=== PATIENT | female | born 2000 | race Caucasian/White ===

== ENCOUNTER 2025-02-10 13:14 | Emergency (ER) | payer OTHER, SELFPAY ==
[2025-02-10] VITALS (7 sets, daily range): BP systolic 102–128; BP diastolic 70–91; PULSE 87–117; RESP 15–24; TEMP 36.6–36.7; O2SAT 99–100
--- NOTE | ~2025-02-10 | CT_ITS ---
EXAMINATION: CT abdomen pelvis w con DATE: 02/10/2025 14:54 INDICATION: Abdominal pain TECHNIQUE: Computed tomography (CT) of the abdomen and pelvis was performed with 100 mL Omnipaque-350 intravenous contrast. Automated exposure control and iterative reconstruction technique were employe d. The dose-length product was 177.94 mGy-cm. COMPARISON: None FINDINGS: Lung bases are clear. Heart size is normal. No pericardial or pleural effusion. Liver, gallbladder, s pleen, pancreas, bilateral adrenal glands and kidneys are normal. Bladder, anteverted uterus and bila teral adnexa are unremarkable. Bowels including the appendix are normal. No free intraperitoneal gas or fluid. No pathologically enlarged abdominal or pelvic lymphadenopathy. Mild lumbar spondylosis. IMPRESSION: 1. No acute intra-abdominal/pelvic process. Reviewed, dictated and finalized at location A.
--- OUTSIDE RECORDS SUMMARY | 2025-02-10 13:18 | XMS_ITS | Clinical Summary ---
Author Organization [facility] Address [address] [place] [address] Care Team Providers Care Skoog Patching Machine Operator Name Role Phone Annmarie Farley MD Primary Care Provider Annmarie Farley MD Unavailable [phone] Allergies Active Allergy Reactions Criticality Noted Date Comments Adhesive Rash Medium 03/27/2017 Medications acetaminophen (TYLENOL) 325 mg tabletIndicatio ns:Fever,Pain Take 2 tablets (650 mg total) by mouth every 6 (six) hours as needed for pain 30 tablet 03/31/2020 Active Active Problems Problem Noted Date Diagnosed Date Anemia 03/30/2020 Assessment & Plan (03/31/2020 12:35 PM CDT): likely d/t IVFs and vaginal bleeding with miscarriage. Improving 9.7-->10.2. -PCP to monitor. Assessment & Plan (03/30/2020 1:17 PM CDT): Hgb down trend from 12.8 on admission-->9.7, likely d/t IVFs and vaginal bleeding with miscarriage. -monitor. E coli bacteremia 03/29/2020 Assessment & Plan (03/31/2020 12:25 PM CDT): 2/2 source. Urine cx and blood cxs from OSH grew holcomb sensitive E. Coli. Blood cxs here no growth. She has remained afebrile as above. -Per ID, continue Keflex PO 1000mg q8h through 04/07 to finish 14 day course. Assessment & Plan (03/30/2020 11:49 AM CDT): 2/2 source. Urine cx and blood cxs from OSH grew holcomb sensitive E. Coli. Blood cxs here still NGTD. She has remained afebrile for past 24 hours. -Per ID, will stop Ceftriaxone and continue Keflex PO 1000mg q8h through 04/07 to finish 14 day course Assessment & Plan (03/29/2020 4:58 PM CDT): 2/2 source. Urine cx and blood cxs from OSH grew holcomb sensitive E. Coli. Blood cxs here still NGTD. -continue Ceftriaxone as above. V-tach 03/29/2020 Assessment & Plan (03/31/2020 12:24 PM CDT): suspect 2/2 picc line placement and hypokalemia. No further episodes. Assessment & Plan (03/30/2020 1:06 PM CDT): suspect 2/2 picc line placement and hypokalemia. Repeat CXR obtained last night d/t frequent beats of VT on tele. Rads recommended PICC line to be pulled back. IV therapy pulled back total of 8 cm and she has had no further VT. K+ and Mg repleted as well. Did have [address] to 150s early this AM, which were asymptomatic. Possibly d/t mild anemia and deconditioning. O2 sats are high 90s on RA and she has no respiratory sxs, LE edema/pain to suggest PE. Infection improving. -Discussed with mother that we could obtain TTE to r/o any underlying structural abnormalities, but given that she has had no further episodes, her mother would like to defer at this time. -monitor tele -monitor lytes Assessment & Plan (03/29/2020 5:03 PM CDT): suspect 2/2 picc line placement and hypokalemia. Patient noted to have intermittent runs of 5-6 beats of V-tach on tele after PICC line placement. Repeat labs also showed K+ 3.2. Vascular patient access manager pulled pick back and she has had no further episodes. NSR on EKG and tele. -replete w/ PO Kcl -monitor bmp -monitor tele Vaginal spotting 03/28/2020 Assessment & Plan (03/29/2020 4:56 PM CDT): Now with abd cramping, concerning for threatened vs. septic as above. -check [facility] [place] & Plan (03/28/2020 12:46 PM CDT): Patient now reporting frequent spotting. Denies any cramping/abdominal pain/lightheadedness. Per OB, VB could be 2/2 threatened or subchorionic hemorrhage, or may resolve spontaneously. Normal exam. Mild decrease in hgb 11.9-->10.1, but suspect hemoconcentration from IVFs. -monitor closely. Pyelonephritis 03/27/2020 Assessment & Plan (03/31/2020 12:24 PM CDT): Remains afebrile. Feels well. Tolerating PO. -dc home today -continue Keflex through 6 for 14 day course as above. -PCP f/u -Discussed with parents over the phone. Assessment & Plan (03/30/2020 11:55 AM CDT): She has remained afebrile for past 24 hours. Feels better. Nausea resolved and she is tolerating PO. -switch to PO Keflex through /6 for 14 day course as above. -likely dc home tomorrow Assessment & Plan (03/29/2020 4:51 PM CDT): Improving as above. Urine cx grew holcomb sensitive E. Coli. -plan as above. -If no miscarriage, she will need macrobid suppression 100mg qhs for the duration of her after completion of abx course for pyelo per OB recs. Assessment & Plan (03/28/2020 12:49 PM CDT): Urine cx and OSH blood cx growing holcomb sensitive E. Coli as above. -plan as above. -Per OB, given pyelonephritis in , she will need macrobid suppression 100mg qhs for the duration of her after completion of abx course for pyelo. Assessment & Plan (03/27/2020 1:13 PM CDT): Improving as above. Urine cx growing E. Coli. -continue Ceftriaxone and transition to PO at time of DC. Will plan bactrim vs keflex pending susceptibilities per OB recs. -Per OB, given pyelonephritis in , she will need macrobid suppression 100mg qhs for the duration of her after completion of abx course for pyelo. Sepsis 03/26/2020 Assessment & Plan (03/29/2020 4:59 PM CDT): 2/2 pyelonephritis and bacteremia, now resolved. Evaluated by ID yesterday and it was felt that continued fevers were d/t immune response given clinical improvement. Abx were switched back to Ceftriaxone. Very low grade fever this AM 37.9, but WBCs trended down to 7.7, tachycardia resolved. Lactate normalized. Blood cxs still NGTD. Lost IV access, so PICC line placed. -continue Ceftriaxone. If no fever for >24 hours, will transition to oral abx -f/u any further ID recs. -will obtain renal US to evaluate for abscess, for any further fevers or clinical decline. -monitor labs Assessment & Plan (03/28/2020 12:55 PM CDT): 2/2 pyelonephritis. Ceftriaxone switched to Ertapenem yesterday d/t continued fevers. ID consulted this AM as she is still febrile and lactate increased 1.5-->2.2. Other VSS. Urine culture and OSH blood cultures growing holcomb sensitive E. Coli. Blood cxs here NGTD. No signs of endometritis per OB. No respiratory sxs, COVID negative in ED. Patient lost IV access this AM and RNs have been unsuccessful in obtaining blood. ACT RN able to place IV, but may not last. -Discussed with ID and given that she is clinically improving (sxs improved, tachy resolved, other VS stable, WBC trending down) continued fevers likely d/t diffuse immune response in young female and recommend continuing current abx. -Aggressive IV hydration -monitor CBC, BMP, lactate -continue to follow blood cultures. Assessment & Plan (03/27/2020 1:02 PM CDT): 2/2 pyelonephritis. OSH blood cultures growing gram neg bacilli. Urine cx growing E. Coli. Febrile to 39.4 this AM. Now afebrile, still tachy to 115, BP stable. WBC trending down 25.2-->13.5. BCxs from yesterday NGTD. Feels better. -Blood cxs obtained this AM. Will continue to follow blood cxs. -Given improvement, will continue empiric CTX 2g q24h for now and f/u urine susceptibilities. -continue maintenance fluids of NS at 125 mL/hr Assessment & Plan (03/26/2020 5:12 AM CDT): Presenting septic with elevated HR to 130-140s, tachypnea to 30s, elevated WBC to 25, and UA consistent with UTI vs pyelonephritis. Lactate level pending. Blood cultures from OSH updated & now growing gram neg bacilli -UA with 2+ protein, 2+ blood, 3+ LE, >50 WBC, and 21-50 RBCs -Urine culture is pending -OSH blood cultures growing gram neg bacilli, will order repeat set here (collected after she received Zosyn at OSH & then CTX here) -Continue empiric CTX for now & follow-up cultures, will have to be mindful of though when choosing oral alternative -CXR with clear lung volumes and no signs of consolidation -COVID-19 swab returned negative and she was cleared from precautions by ID/IP review -S/p 2 L hydration in ED and will continue maintenance fluids of NS at 125 mL/hr overnight -EKG to ensure tachycardia is sinus tach -PRN tylenol if febrile -If continues to remain tachycardic/tachypneic despite fluid resuscitation & CTX then would consider broadening to Cefepime for Pseudomonas coverage and adding gram positive coverage as well Miscarriage 03/26/2020 Assessment & Plan (03/31/2020 12:23 PM CDT): in setting of pyelonephritis/bacteremia. Patient with bHCG drop from 11k -> 4k consistent with early loss. - Appointment scheduled April 11 at 10am at [facility] 3rd floor [address] -OB counseled patient on returning to the ED including bleeding through 2 pads an hour for two consecutive hours, fevers/chills, or significant pain not relieved by OTC medications. -Discussed all information with her mother and father. Assessment & Plan (03/30/2020 12:07 PM CDT): in setting of pyelonephritis/bacteremia. Patient with bHCG drop from 11k -> 4k consistent with early loss. HANDBAG FRAMES INSPECTOR discussed options including expectant, medical and surgical management. The patient desires expectant management. I discussed this with the patient's parents as well. Per OB, no indication for TVUS at this time given clinical signs and symptoms of early loss. No indication for MVA -Patient will need to f/u in OBGYN clinic in the next 1-2 weeks to confirm resolution of early loss. Appointment scheduled April 11 at 10am at [facility] 3rd floor [address] -OB counseled patient on returning to the ED including bleeding through 2 pads an hour for two consecutive hours, fevers/chills, or significant pain not relieved by OTC medications. -CTM Assessment & Plan (03/29/2020 4:35 PM CDT): Patient complaining of intermittent low abd pain. HANDBAG FRAMES INSPECTOR evaluated and feel most likely threatened vs less likely septic . -will repeat bHCG and if trending down OB will perform US tomorrow -Per HANDBAG FRAMES INSPECTOR, ok to obtain abd CT if pain becomes acutely worse. -continue vitamin -continuous pulse ox -Tylenol prn for pain. Ok to use oxycodone/hydrocodone prn per OB. Discussed with patient's mother and she is ok with that. Assessment & Plan (03/28/2020 12:50 PM CDT): Newly diagnosed with ED ultrasound by Ob showing intrauterine roughly dated 6 weeks. Gonorrhea/Chylamdia and trichomonas all negative at OSH ED, HIV and RPR non-reactive -patient's mother is arranging outpatient OB follow-up closer to home -daily vitamin -OB recommend continuous pulse ox monitoring as women are at risk of ARDS with pyelonephritis in given gram negative exotoxin secretion. No resp sxs and sats stable. -Will need repeat pelvic US in 1-2 weeks to confirm viability and dating. Assessment & Plan (03/27/2020 1:09 PM CDT): Newly diagnosed with ED ultrasound by Ob showing intrauterine roughly dated 6 weeks. Gonorrhea/Chylamdia and trichomonas all negative at OSH ED, HIV and RPR non-reactive -patient's mother is arranging outpatient OB follow-up closer to home -daily vitamin -OB recommend continuous pulse ox monitoring as women are at risk of ARDS with pyelonephritis in given gram negative exotoxin secretion -Will need repeat pelvic US in 1-2 weeks to confirm viability and dating. Assessment & Plan (03/26/2020 4:39 AM CDT): Newly diagnosed today with ED ultrasound by Ob showing intrauterine roughly dated 5 weeks -Will need outpatient OB follow-up and cautious with medications administered -Gonorrhea/Chylamdia and trichomonas all negative at OSH ED, will add on HIV and RPR here to complete STI work-up -Will start daily vitamin IBIS (acute kidney injury) 03/26/2020 Assessment & Plan (03/28/2020 1:00 PM CDT): likely 2/2 mild dehydration in setting of fevers and n/v. Resolved. Assessment & Plan (03/27/2020 1:15 PM CDT): likely 2/2 mild dehydration in setting of fevers and n/v. Serum Cr elevated to 1.20 on admission labs and no prior values for comparison. Cr trending down 1.20-->0.95 s/p IVFs. -continue IVFs Assessment & Plan (03/26/2020 6:11 AM CDT): Serum Cr elevated to 1.20 on admission labs and no prior values for comparison -Suspect secondary to underlying pyelonephritis and poor PO intake due to nausea/vomiting -S/p 2 L LR for hydration in ED & now on maintenance fluids -Renal US to assess for stones/hydronephrosis -Repeat BMP in AM to trend Hyponatremia 03/26/2020 Assessment & Plan (03/28/2020 1:01 PM CDT): likely 2/2 dehydration. Resolved. Assessment & Plan (03/27/2020 1:16 PM CDT): likely 2/2 dehydration. Improved w/ IVFs. Currently 134. Assessment & Plan (03/26/2020 4:37 AM CDT): Na 129 at OSH ED and now 134 on arrival here after IV fluids at OSH -Secondary to hypovolemia hyponatremia from dehydration with nausea/vomiting -S/p 2 L bolus in ED and will continue maintenance fluids for sepsis -Repeat BMP in AM Medical History Medical History Date Comments Scoliosis Family History Medical History Relation Name Comments Hypertension Father Relation Name Status Comments Father Social History Tobacco Use Types Packs/Day Years Used Date Smoking Tobacco: Never Smokeless Tobacco: Never Alcohol Use Standard Drinks/Week Comments Never 0 (1 standard drink = 0.6 oz pur e alcohol) AUDIT-C Answer Date Recorded Q1: How often do you have a drink containing alc ohol? Never 03/26/2020 Average Number of Drinks Not on file 020 Frequency of Binge Drinking Not on file 03/03 Personal Safety Answer Date Recorded Getting School Help Needed Not on file 01/02 Comments Unknown Sex and Gender Information Value Date Recorded Sex Assigned at Not on file Legal Sex Female 2:23 PM CDT Gender Identity Not on file Sexual Orientation Not on file Obstetrics History Para Term AB IAB SAB Ectopic Multiple Livin g Live Births 1 0 0 0 1 0 0 0 0 0 0 Date Outcome GA Total Labor Labor/2nd/3rd Weight Sex Type Anes PTL Radha A1 A5 Name Clin AB Last Filed Vital Signs Vital Sign Reading Time Taken Comments Blood Pressure 123/82 04/16/2020 9:50 AM CDT Pulse 84 04/16/2020 9:50 AM CDT Temperature 36.3 C (97.3 F) 04/16/2020 9:50 AM CDT Respiratory Rate 18 03/31/2020 8:10 AM CDT Oxygen Saturation 99% 04/16/2020 9:50 AM CDT Inhaled Oxygen Concentration - - Weight 51.8 kg (114 lb 4.8 oz) 04/16/2020 9:50 A M CDT Height 160 cm (5' 3 ) 04/16/2020 9:50 AM CDT Body Mass Index 20.25 04/16/2020 9:50 AM CDT Plan of Treatment Health Maintenance Due Date Last Done Comments Cervical Cancer Screening 2002 Depression Screening 2002 Hepatitis C Screening 2002 HPV Vaccines (1 - 3-dose series) 2017 Meningococcal B Vaccine (1 of 2 - Standard) 2018 Regular Well Visit/Exam 18-64 2020 Influenza Vaccine (#1) 2024 11/15/2016, 2013 DTaP/Tdap/Td Vaccine (7 - Td or Tdap) 06/07/2029 06/07/2019, 03/07/2008, 06/22/2006, Additional history exists Pneumococcal vaccine <65 Aged Out 003, 01/24/2003, 2002 No longer eligible based on patient's age to complete this topic Hepatitis B Screening Completed 06/21/2003 , 2002, 2002 Varicella Vaccines Completed 05/28/2007, 06/22/2006 Insurance ASAD JIMENEZ [employer] [facility] [employer] Address: [address] [place] [address] Advance Directives For more information, please contact: [phone] * Full Code (Latest Code Status on File) Date Activated Date Inactivated Comments 03/26/2020 7:22 AM 03/31/2020 7:20 PM Care Teams Skoog Patching Machine Operator Relationship Specialty Start Date End Date Annmarie Farley MD PCP - General 03/25/20 Annmarie Farley MD 03/25/20
--- OUTSIDE RECORDS SUMMARY | 2025-02-10 13:18 | XMS_ITS | Referral Summary ---
Author Organization [facility] Address [address] [place] [address] Care Team Providers Care Rate Quoting Operator Name Role Phone Annmarie Farley MD Primary Care Provider Annmarie Farley MD Unavailable [phone] Allergies Active Allergy Reactions Criticality Noted [...] also showed K+ 3.2. Vascular patient access registrar pulled pick back and she has had no further episodes. NSR on EKG and tele. -replete w/ PO Kcl -monitor bmp -monitor tele Vaginal spotting 03/28/2020 Assessment & Plan (03/29/2020 4:56 PM CDT): Now with abd cramping, concerning for threatened vs. septic as above. [place] [facility] [place] Plan (03/28/2020 12:46 PM CDT): [...] Appointment scheduled April 11 at 10am at [facility] 3rd floor [address] -OB counseled [...] 11k -> 4k consistent with early loss. SCHOOL BUS DRIVER/TEACHER ASSISTANT discussed options including expectant, medical and surgical [...] Appointment scheduled April 11 at 10am at [facility] 3rd floor [address] -OB counseled patient on returning to the ED including bleeding through 2 pads an hour for two consecutive hours, fevers/chills, or significant pain not relieved by OTC medications. -CTM Assessment & Plan (03/29/2020 4:35 PM CDT): Patient complaining of intermittent low abd pain. SCHOOL BUS DRIVER/TEACHER ASSISTANT evaluated and feel most likely threatened vs less likely septic . -will repeat bHCG and if trending down OB will perform US tomorrow -Per SCHOOL BUS DRIVER/TEACHER ASSISTANT, ok to obtain abd CT if pain [...] fluids for sepsis -Repeat BMP in AM Social History Tobacco Use Types Packs/Day Years [...] on file Sexual Orientation Not on file Last Filed Vital Signs Vital Sign Reading [...] 04/16/2020 9:50 AM CDT Plan of Treatment Not on file Insurance ASAD [employer]BPREM [employer] Advance Directives For more information, please contact: [phone] * Full Code (Latest Code Status on File) Date Activated Date Inactivated Comments 03/26/2020 7:22 AM 03/31/2020 7:20 PM Care Teams Rate Quoting Operator Relationship Specialty Start Date End Date Annmarie Farley MD PCP - General 03/25/20 Annmarie Farley MD 03/25/20
[2025-02-10 13:55] LABS: Basophils Absolute Auto 0.1 K/mm3 (0.0-0.1); Basophils Percent Auto 0.6 % (0.2-1.2); Eosinophils Percent Auto 0.3 % (0-4.4); Hematocrit 41.8 % (37.0-47.0); Hemoglobin 13.7 g/dL (12.0-15.0); Immature Granulocyte Absolute 0.03 K/mm3 (0.00-0.031); Immature Granulocyte Percent A 0.3 % (0-0.5); Lymphocytes Absolute Auto 1.75 K/mm3 (0.9-3.2); Lymphocytes Percent Auto 18.5 % (18.3-44.2); Mean Corpuscular HGB Conc 32.8 g/dl (32-36); Mean Corpuscular Hemoglobin 30.3 pg (26-34); Mean Corpuscular Volume 92.5 fl (80-100); Mean Platelet Volume 10.9 fl (7.4-10.4); Monocytes Absolute Auto 0.5 K/mm3 (0.1-0.6); Neutrophils Absolute Auto 7.1 K/mm3 (1.3-6.7); Neutrophils Percent Auto 75.3 % (45.5-73.1); Platelet Count Result 332 k/mm3 (150-375); Red Blood Count 4.52 M/mm3 (4.2-5.4); Red Cell Distribution Width 12.8 % (11.5-14.5); White Blood Count 9.5 K/mm3 (4.5-10.0)
[2025-02-10 13:57] LABS: Add Urine Microscopic? NO; Appearance Urine Clear (Clear); Bilirubin Urine Negative (Negative); Blood Urine Negative (Negative); Color Urine Yellow (Yellow); Glucose Urine UA Negative (Negative); Ketones Urine 1+ mg/dL (Negative); Leukocyte Esterase Ur Negative LEU/UL (Negative); Nitrate Urine Negative (Negative); Protein Urine Negative (Negative); Specific Grav Ur 1.029 (1.001-1.035); Urobilinogen Urine 0.2 mg/dL (<2.0); pH Urine 5.5 (5.0-9.0)
[2025-02-10 14:07] LABS: Alanine Aminotransferase 14 U/L (6-35); Albumin Level 4.8 g/dL (3.5-5.1); Alkaline Phosphatase 48 U/L (38-126); Anion Gap 14 mmol/L (4-12); Aspartate Amino Transferase 25 U/L (14-36); Bilirubin,Total 0.3 mg/dL (0.2-1.3); Blood Urea Nitrogen 17 mg/dL (7-17); Calcium 9.6 mg/dL (8.4-10.2); Carbon Dioxide 21 mmol/L (22-30); Chloride 104 mmol/L (98-107); Estimated CRCL calculation 69 ml/min; Estimated Glomerular Filt Rate > 60; Glucose 103 mg/dL (65-110); Lipase 76 U/L (23-300); Sodium 139 mmol/L (137-145)
[2025-02-10 14:24] LABS: BEDSIDEPREGUCG Negative (Negative)
--- NOTE | 2025-02-10 14:26 | ED.ABDPAIN ---
HPI - Abdominal Pain General Chief Complaint: Abdominal Pain Stated Complaint: Vomiting coffee ground emesis Time Seen by Provider: 02/10/25 14:19 History of Present Illness HPI narrative: Patient is a 24-year-old female who presents to the ER following seven episodes of black, coffee-ground emesis this morning. She also endorses belly pain that started this evening. Patient reports she has been unable to keep any fluids down. She endorses a history of ?stomach problems that cause her to vomit almost every time after she eats. Pt reports the stomach problems have been going on for over a year. She reports her last bowel movement was this morning and was normal for her. Patient denies any recent fevers, GERD, urinary symptoms, or back pain. Related Data Home Medications ?Medication ?Instructions ?Recorded ?Confirmed ?Last Taken ?Type albuterol sulfate 90 mcg/actuation 1 puff inhalation Q4H PRN 10/24/24 10/24/24 Unknown History aerosol inhaler norgestrel 0.075 mg tablet (Opill) 1 tablet PO DAILY 10/24/24 10/24/24 Unknown History Allergies Allergy/AdvReac Type Severity Reaction Status Date / Time latex Allergy Intermediate Rash Verified 02/10/25 13:16 Review of Systems Review of Systems: All systems reviewed & are unremarkable except as noted in HPI and below PMFSH Past Medical History Medical History Miscarriage Asthma Family History Family History Grandparent Diabetes mellitus Social History Social History Smoking status: Never smoker Alcohol intake: never Substance use: never Substance use type: does not use Do You Feel Safe in your Home?: Yes Lack of Transportation: No Lack of Food: Never True Current Housing: I Have Housing Concerned About Future Housing: No Difficulty Paying Gas/Electric Bills: No Difficulty Paying for Meds: No Currently Unemployed: No Education: Associate Degree Difficulty w/ Childcare or Family Care: No Living arrangements: with family Occupation/Education: occupation 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 HEAD: Normocephalic, atraumatic. NECK: Supple. No adenopathy, no masses. RESPIRATORY: Airway patent, respirations nonlabored. Clear to auscultation bilaterally, no rales, rhonchi, wheezing. CARDIOVASCULAR: Regular rate and rhythm without murmurs, rubs, or gallops. Peripheral pulses 2+ and equal bilaterally. ABDOMINAL: Soft, tender LUQ, nondistended, no hepatosplenomegaly. Normoactive BS. MUSCULOSKELETAL: Moves all extremities. Strength/ROM intact without gross deformities. SKIN: Warm, dry, normal color. No rashes. NEURO: A&O X3. Speech clear. Cranial nerves II-XII intact. No ataxic movements. PSYCHIATRIC: Appropriate mood and affect. Normal interaction. Course Vital Signs Vital signs: Vital Signs Pulse Rate 117 H 02/10/25 13:22 Respiratory Rate 15 02/10/25 13:22 Blood Pressure 128/91 H 02/10/25 13:22 Pulse Oximetry 100 02/10/25 13:22 Temperature 36.6 C 02/10/25 13:23 Pulse Rate 99 02/10/25 14:00 Respiratory Rate 23 H 02/10/25 14:00 Blood Pressure 115/71 02/10/25 13:30 Pulse Oximetry 99 02/10/25 14:00 MDM - Abdominal Pain MDM Narrative Medical decision making narrative: Patient is a 24-year-old female who presents to the ER following seven episodes of black, coffee-ground emesis this morning. She also endorses belly pain that started this evening. Patient reports she has been unable to keep any fluids down. She endorses a history of ?stomach problems that cause her to vomit almost every time after she eats. Pt reports the stomach problems have been going on for over a year. She reports her last bowel movement was this morning and was normal for her. Patient denies any recent fevers, GERD, urinary symptoms, or back pain. Labs Ordered: CBC, CMP, lipase, UA Imaging Ordered: CT abdomen pelvis Medications Ordered: 1L NS IV bolus, Protonix IV, Pepcid IV, GI cocktail Results: Pt's CT scan indicates Lung bases are clear. Heart size is normal. No pericardial or pleural effusion. Liver, gallbladder, spleen, pancreas, bilateral adrenal glands and kidneys are normal. Bladder, anteverted uterus and bilateral adnexa are unremarkable. Bowels including the appendix are normal. No free intraperitoneal gas or fluid. No pathologically enlarged abdominal or pelvic lymphadenopathy. Mild lumbar spondylosis. Diagnosis: Gastroenteritis, GERD Consults: gastroenterology (outpatient) Patient Education/Shared MDM: Results of lab work and imaging shared with patient. She endorses improvement following medication administration. Patient strongly advised to maintain hydration status upon discharge and follow-up with her PCP as soon as possible and gastroenterology d/t her frequent vomiting. She will be discharged home with a prescription for Bentyl, Zofran, and Pepcid. Strict return precautions provided. Patient verbalized understanding is in agreement with plan. Vital signs stable at time of discharge. All questions answered. Differential Diagnosis Differential diagnosis: Likely abdominal pain, diverticulitis, gastroenteritis, pancreatitis and small bowel obstruction Lab Data Attestation: I reviewed the patient's lab results. 02/10/25 13:45 02/10/25 13:45 Labs: Lab Results 02/10/25 02/10/25 02/10/25 Range/Units 13:27 13:44 13:45 WBC 9.5 (4.5-10.0) K/mm3 RBC 4.52 (4.2-5.4) M/mm3 Hgb 13.7 (12.0-15.0) g/dL Hct 41.8 (37.0-47.0) % MCV 92.5 (80-100) fl MCH 30.3 (26-34) pg MCHC 32.8 (32-36) g/dl RDW 12.8 (11.5-14.5) % Plt Count 332 (150-375) k/mm3 MPV 10.9 H (7.4-10.4) fl Immature Gran % (Auto) 0.3 (0-0.5) % Neut % (Auto) 75.3 H (45.5-73.1) % Lymph % (Auto) 18.5 (18.3-44.2) % [place] % (Auto) 5.0 (2.6-8.5) % Eos % (Auto) 0.3 (0-4.4) % Baso % (Auto) 0.6 (0.2-1.2) % Lymph # (Auto) 1.75 (0.9-3.2) K/mm3 [place] # (Auto) 0.5 (0.1-0.6) K/mm3 Eos # (Auto) 0.0 (0-0.3) K/mm3 Baso # (Auto) 0.1 (0.0-0.1) K/mm3 Abs Immat Gran (auto) 0.03 (0.00-0.031) K/mm3 Absolute Neuts (auto) 7.1 H (1.3-6.7) K/mm3 Absolute Nucleated RBC 0.000 (0.0-0.012) K/mm3 Nucleated RBC % 0.0 (0.0-0.2) % PT 13.8 (11.1-14.7) Seconds INR 1.0 APTT 27.9 (22.3-36.8) Seconds Sodium 139 (137-145) mmol/L Potassium 4.0 (3.4-5.0) mmol/L Chloride 104 (98-107) mmol/L Carbon Dioxide 21 L (22-30) mmol/L Anion Gap 14 H (4-12) mmol/L BUN 17 (7-17) mg/dL Creatinine 0.84 (0.7-1.0) mg/dL Estim Creat Clear Calc 69 ml/min Estimated GFR > 60 (59 - ) Glucose 103 (65-110) mg/dL Calcium 9.6 (8.4-10.2) mg/dL Total Bilirubin 0.3 (0.2-1.3) mg/dL AST 25 (14-36) U/L ALT 14 (6-35) U/L Alkaline Phosphatase 48 (38-126) U/L Total Protein 8.0 (6.3-8.2) g/dL Albumin 4.8 (3.5-5.1) g/dL Lipase 76 (23-300) U/L Urine Color Yellow (Yellow) Urine Appearance Clear (Clear) Urine pH 5.5 (5.0-9.0) Ur Specific [place] 1.029 (1.001-1.035) Urine Protein Negative (Negative) mg/dL Urine Glucose (UA) Negative (Negative) mg/dL Urine Ketones 1+ H (Negative) mg/dL Ur Blood (Man) Negative (Negative) Urine Nitrate Negative (Negative) Urine Bilirubin Negative (Negative) Urine Urobilinogen 0.2 (<2.0) mg/dL Leukocyte Esterase Rfl Negative (Negative) MONIKA/UL POC Urine HCG, Qual Negative (Negative) Imaging Data Attestation: I personally reviewed and interpreted this imaging study as follows: Radiologist's impression: ITS Impressions Abdomen/Pelvis CT 02/10/25 15:17 IMPRESSION: 1. No acute intra-abdominal/pelvic process. Discharge Plan Discharge Clinical Impression: GERD (gastroesophageal reflux disease), Gastroenteritis Patient Disposition: Home Condition: Stable Instructions: Antibiotic Form Additional Instructions: Please return to the ER with any worsening symptoms. Follow-up with primary care provider as soon as possible. Please call gastroenterology to make an appointment for further work-up with your frequent vomiting. Take all medications as prescribed, including regularly scheduled medications. Patient Language: Frisian Prescriptions: New ondansetron 4 mg tablet,disintegrating 4 mg PO Q6H PRN (Reason: nausea and vomiting) Qty: 10 0RF dicyclomine 10 mg capsule 10 mg PO TID Qty: 12 0RF famotidine [Pepcid AC] 20 mg tablet 20 mg PO BID Qty: 20 0RF No Action Opill 0.075 mg tablet 1 tablet PO DAILY albuterol sulfate 90 mcg/actuation HFA aerosol inhaler 1 puff inhalation Q4H PRN Follow-up/Referrals: Vira Albert APRN [Primary Care Provider] - Stand Alone Forms: Work/School Release IP Time of Disposition: 15:56
--- OUTSIDE RECORDS SUMMARY | 2025-02-10 14:27 | XMS_ITS | Referral Summary ---
Author Organization [facility] Address [address] [place] [address] Care Team Providers Care Drafter Electromechanical Name Role Phone Annmarie Farley MD Primary Care Provider Annmarie Farley MD Unavailable [phone] Allergies Active Allergy Reactions Criticality Noted [...] Repeat labs also showed K+ 3.2. Vascular literacy specialist pulled pick back and she has had no further episodes. NSR on EKG and tele. -replete w/ PO Kcl -monitor bmp -monitor tele Vaginal spotting 03/28/2020 Assessment & Plan (03/29/2020 4:56 PM CDT): Now with abd cramping, concerning for threatened vs. septic as above. [place] [facility] [place] & Plan (03/28/2020 12:46 PM CDT): [...] Appointment scheduled April 11 at 10am at [facility] 3rd floor [address] -OB counseled [...] 11k -> 4k consistent with early loss. STAFF COMBAT INFORMATION CENTER OFFICER discussed options including expectant, medical and surgical [...] Appointment scheduled April 11 at 10am at [facility] 3rd floor [address] -OB counseled patient on returning to the ED including bleeding through 2 pads an hour for two consecutive hours, fevers/chills, or significant pain not relieved by OTC medications. -CTM Assessment & Plan (03/29/2020 4:35 PM CDT): Patient complaining of intermittent low abd pain. STAFF COMBAT INFORMATION CENTER OFFICER evaluated and feel most likely threatened vs less likely septic . -will repeat bHCG and if trending down OB will perform US tomorrow -Per STAFF COMBAT INFORMATION CENTER OFFICER, ok to obtain abd CT if pain [...] on file Insurance ASAD IBPREM [employer] [employer] Address: [address] [place] [address] Advance Directives For more information, please contact: [phone] * Full Code (Latest Code Status on File) Date Activated Date Inactivated Comments 03/26/2020 7:22 AM 03/31/2020 7:20 PM Care Teams Drafter Electromechanical Relationship Specialty Start Date End Date Annmarie Farley MD PCP - General 03/25/20 Annmarie Farley MD 03/25/20
--- OUTSIDE RECORDS SUMMARY | 2025-02-10 14:27 | XMS_ITS | Clinical Summary ---
Author Organization [facility] Address [address] [place] [address] Care Team Providers Care Assessor Name Role Phone Annmarie Farley MD Primary Care Provider Annmarie Farley MD Unavailable [phone] Allergies Active Allergy Reactions Criticality Noted [...] Repeat labs also showed K+ 3.2. Vascular electrical accessories ii assembler pulled pick back and she has had no further episodes. NSR on EKG and tele. -replete w/ PO Kcl -monitor bmp -monitor tele Vaginal spotting 03/28/2020 Assessment & Plan (03/29/2020 4:56 PM CDT): Now with abd cramping, concerning for threatened vs. septic as above. [place] [facility] [place] Plan (03/28/2020 12:46 PM CDT): [...] Appointment scheduled April 11 at 10am at [facility] 3rd floor [address] -OB counseled patient on returning to the ED including bleeding through 2 pads an hour for two consecutive hours, fevers/chills, or significant pain not relieved by OTC medications. -Discussed all information with her mother and father. Assessment & Plan (03/30/2020 12:07 PM CDT): in setting of pyelonephritis/bacteremia. Patient with bHCG drop from 11k -> 4k consistent with early loss. SUBMARINE ADVISORY TEAM WATCH OFFICER discussed options including expectant, medical and [...] Appointment scheduled April 11 at 10am at [facility] 3rd floor [address] -OB counseled patient on returning to the ED including bleeding through 2 pads an hour for two consecutive hours, fevers/chills, or significant pain not relieved by OTC medications. -CTM Assessment & Plan (03/29/2020 4:35 PM CDT): Patient complaining of intermittent low abd pain. SUBMARINE ADVISORY TEAM WATCH OFFICER evaluated and feel most likely threatened vs less likely septic . -will repeat bHCG and if trending down OB will perform US tomorrow -Per SUBMARINE ADVISORY TEAM WATCH OFFICER, ok to obtain abd CT if [...] Completed 05/28/2007, 06/22/2006 Insurance ASAD JIMENEZ IDPA [facility] [employer] Address: [address] [place] [address] Advance Directives For more information, please contact: [phone] * Full Code (Latest Code Status on File) Date Activated Date Inactivated Comments 03/26/2020 7:22 AM 03/31/2020 7:20 PM Care Teams Assessor Relationship Specialty Start Date End Date Annmarie Farley MD PCP - General 03/25/20 Annmarie Farley MD 03/25/20
[2025-02-10] MEDS: FAMOTIDINE 20 MG/2 ML VIAL IV PUSH (14:41)
[2025-02-10] MEDS: SODIUM CHLORIDE 0.9% IV 1,000 ML 999 ML IV CONT (14:41)
[2025-02-10] MEDS: PANTOPRAZOLE SODIUM IV 40 MG VIAL IV PUSH (14:42)
[2025-02-10 15:10] LABS: Prothrombin Time 13.8 Seconds (11.1-14.7)
[2025-02-10 15:11] LABS: Partial Thromboplastin Time 27.9 Seconds (22.3-36.8)
[2025-02-10] MEDS: BELLADONNA ALK/PHENOB ELIX 10 ML, MAG HYDROX/ALUMINUM HYD/SIMETH 30 ML, LIDOCAINE 2% VI... PO (16:02)
== END 2025-02-10 16:26 | disposition home or self-care (01) ==
PROVIDERS: Student in an Organized Health Care Education/Training Program; Emergency Provider Registered Nurse; PCP Nurse Practitioner Family
DX: K52.9 Noninfective gastroenteritis and colitis, unspecified (principal); K21.9 Gastro-esophageal reflux disease without esophagitis; J45.909 Unspecified asthma, uncomplicated
CPT/HCPCS: 36415; 74177; 80053; 81003; 81025; 83690; 85025; 85610; 85730; 96361; 96374; 96375; 99284; A9270; J2470; J7030; Q9967

== ENCOUNTER 2025-03-21 12:01 | Outpatient (CLI) | payer OTHER, SELFPAY ==
--- NOTE | ~2025-03-21 | XR_ITS ---
EXAMINATION: XR UGIAC w small bowel DATE: 03/21/2025 13:58 INDICATION: Vomiting. Abnormal weight loss. TECHNIQUE: The patient drank thick barium, gas-producing crystals, and thin barium. Conventional supi ne abdomen radiographs and fluoroscopic spot radiographs of the esophagus, stomach, and proximal smal l bowel were obtained. Additional overhead radiographs were obtained during the transit through the s mall bowel. Spot fluoroscopic images of the small bowel were obtained upon contrast reaching the cec um. Fluoroscopy exposure time was 1.4 minutes. A total of 582 fluoroscopic images and 5 overhead radi ographs were recorded. Total DAP was 19.994 Gycm^2. COMPARISON: None. FINDINGS: The esophagus is normal without mass or stricture. Esophageal motility is normal. There is no hiatal hernia. There was no gastroesophageal reflux with provocative maneuvers. The stomach and proximal sma ll bowel are normal. Transit time from the stomach to proximal colon was approximately 15 minutes. There is normal caliber and mucosal fold pattern throughout the small bowel. Terminal ileum is normal. IMPRESSION: 1. Normal upper GI and small bowel follow-through study. Reviewed, dictated and finalized at location A.
--- OUTSIDE RECORDS SUMMARY | 2025-03-21 12:05 | XMS_ITS | Clinical Summary ---
Author Organization [facility] Address [address] [place] [address] Care Team Providers Care Account Manager Name Role Phone Annmarie Farley MD Primary Care Provider Annmarie Farley MD Unavailable [phone] Allergies Active Allergy Reactions Criticality Noted [...] Repeat labs also showed K+ 3.2. Vascular vein access technician pulled pick back and she has had no further episodes. NSR on EKG and tele. -replete w/ PO Kcl -monitor bmp -monitor tele Vaginal spotting 03/28/2020 Assessment & Plan (03/29/2020 4:56 PM CDT): Now with abd cramping, concerning for threatened vs. septic as above. [place] [facility] [place] Assessment & Plan (03/28/2020 12:46 PM CDT): [...] Appointment scheduled April 11 at 10am at [facility] 3rd floor [address] -OB counseled patient on returning to the ED including bleeding through 2 pads an hour for two consecutive hours, fevers/chills, or significant pain not relieved by OTC medications. -Discussed all information with her mother and father. Assessment & Plan (03/30/2020 12:07 PM CDT): in setting of pyelonephritis/bacteremia. Patient with bHCG drop from 11k -> 4k consistent with early loss. PRODUCT PROMOTER RETAIL PET discussed options including expectant, medical and surgical [...] Appointment scheduled April 11 at 10am at [facility] 3rd floor [address] -OB counseled patient on returning to the ED including bleeding through 2 pads an hour for two consecutive hours, fevers/chills, or significant pain not relieved by OTC medications. -CTM Assessment & Plan (03/29/2020 4:35 PM CDT): Patient complaining of intermittent low abd pain. PRODUCT PROMOTER RETAIL PET evaluated and feel most likely threatened vs less likely septic . -will repeat bHCG and if trending down OB will perform US tomorrow -Per PRODUCT PROMOTER RETAIL PET, ok to obtain abd CT if pain [...] Completed 05/28/2007, 06/22/2006 Insurance ASAD JIMENEZ IDPA [facility] [employer] Address: [address] [place] [address] Advance Directives For more information, please contact: [phone] * Full Code (Latest Code Status on File) Date Activated Date Inactivated Comments 03/26/2020 7:22 AM 03/31/2020 7:20 PM Care Teams Account Manager Relationship Specialty Start Date End Date Annmarie Farley MD PCP - General 03/25/20 Annmarie Farley MD 03/25/20
--- OUTSIDE RECORDS SUMMARY | 2025-03-21 12:05 | XMS_ITS | Referral Summary ---
Author Organization [facility] Address [address] [place] [address] Care Team Providers Care Loose Hand Packer Name Role Phone Annmarie Farley MD Primary Care Provider Annmarie Farley MD Unavailable [phone] Allergies Active Allergy Reactions Criticality Noted [...] Repeat labs also showed K+ 3.2. Vascular accessibility lift technician pulled pick back and she has had no further episodes. NSR on EKG and tele. -replete w/ PO Kcl -monitor bmp -monitor tele Vaginal spotting 03/28/2020 Assessment & Plan (03/29/2020 4:56 PM CDT): Now with abd cramping, concerning for threatened vs. septic as above. -check [facility] [place] Assessment & Plan (03/28/2020 12:46 PM CDT): [...] Appointment scheduled April 11 at 10am at [facility] 3rd floor [address] -OB counseled patient on returning to the ED including bleeding through 2 pads an hour for two consecutive hours, fevers/chills, or significant pain not relieved by OTC medications. -Discussed all information with her mother and father. Assessment & Plan (03/30/2020 12:07 PM CDT): in setting of pyelonephritis/bacteremia. Patient with bHCG drop from 11k -> 4k consistent with early loss. BANANA ROOM CUTTER discussed options including expectant, medical and surgical [...] Appointment scheduled April 11 at 10am at [facility] 3rd floor [address] -OB counseled patient on returning to the ED including bleeding through 2 pads an hour for two consecutive hours, fevers/chills, or significant pain not relieved by OTC medications. -CTM Assessment & Plan (03/29/2020 4:35 PM CDT): Patient complaining of intermittent low abd pain. BANANA ROOM CUTTER evaluated and feel most likely threatened vs less likely septic . -will repeat bHCG and if trending down OB will perform US tomorrow -Per BANANA ROOM CUTTER, ok to obtain abd CT if pain [...] Advance Directives For more information, please contact: [phone] * Full Code (Latest Code Status on File) Date Activated Date Inactivated Comments 03/26/2020 7:22 AM 03/31/2020 7:20 PM Care Teams Loose Hand Packer Relationship Specialty Start Date End Date Annmarie Farley MD PCP - General 03/25/20 Annmarie Farley MD 03/25/20
== END 2025-03-21 12:02 | disposition home or self-care (01) ==
PROVIDERS: PCP Nurse Practitioner Family; Visit Provider Nurse Practitioner Family
DX: K92.0 Hematemesis (principal); R63.4 Abnormal weight loss
CPT/HCPCS: 74246; 74248

== ENCOUNTER 2025-06-26 06:46 | Day surgery (SDC) | payer OTHER, SELFPAY ==
[2025-03-01 08:04] VITALS: BMI 19.3
[2025-06-07 13:03] VITALS: BMI 19.3
[2025-06-26 07:11] VITALS: BP 113/77; PULSE 68; RESP 15; TEMP 36.9; O2SAT 100
[2025-06-26] MEDS: SIMETHICONE ORAL SUSPENSION 20 MG/0.3 ML 30 ML BOTTLE 1.8 ML PO (07:15)
[2025-06-26] MEDS: LACTATED RINGERS 1,000 ML 150 ML IV CONT (07:22)
--- NOTE | 2025-06-26 07:52 | WPDANESEPPF ---
Anes - Initial Pre Proc Eval Procedure: Operation Date: 06/26/25 08:30 Proposed Procedures p Esophagogastroduodenoscopy - Ruben Hernandez MD Date/Time: 06/26/25 07:52 Surgeon: Ruben Hernandez MD Pre Op Diagnosis: Nausea, Anorexia, Abnormal Weight Loss Patient Data Age: 24 Gender: F Height: 1.63 m Weight: 50.95 kg Last Vital Signs Temp 98.4 F 06/26/25 07:11 Pulse 68 06/26/25 07:11 Resp 15 06/26/25 07:11 BP 113/77 06/26/25 07:11 Pulse Ox 100 06/26/25 07:11 O2 Del Method Room Air 06/26/25 07:11 Allergies Allergy/AdvReac Type Severity Reaction Status Date / Time latex Allergy Intermediate Rash Verified 06/26/25 07:09 Home Medications ?Medication ?Instructions ?Recorded ?Confirmed ?Type albuterol sulfate 90 mcg/actuation 1 puff inhalation Q4H PRN 10/24/24 06/26/25 History aerosol inhaler shortness of breath or wheezing ondansetron 4 mg disintegrating 4 mg PO Q6H PRN nausea and 02/10/25 06/26/25 Rx tablet vomiting #10 tabs pantoprazole 40 mg tablet,delayed 40 mg PO QAM #30 tabs 02/24/25 06/26/25 Rx release norethindrone 1 mg-ethinyl 1 tablet PO DAILY 06/07/25 06/26/25 History estradiol 20 mcg (24)-iron 75 mg (4) tablet (Edilma 24 Fe) Patient hx anesthesia problems: none Family hx anesthesia problems: none Results Review: All pre-operative results and documents have been reviewed as part of the pre-operative evaluation. [facility] Past Medical History Medical History Body mass index (BMI) less than 20 Miscarriage Asthma Family History Family History Grandparent Diabetes mellitus Father Heart disease Mother No problems noted. Sibling No problems noted. 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 Informed Consent: The patient's anesthetic plan and its attendant risks and benefits were discussed with the patient/family/POA. Questions were solicited and answers provided to the satisfaction of the patient/family/POA.
--- NOTE | 2025-06-26 08:34 | P.HP_ITS ---
H&P: HPI History of Present Illness Date/Time: 06/26/25 08:34 Chief Complaint: nausea and vomiting Narrative: this patient has been complaining of persistent nausea, some of the episodes are associated with Coffee-ground type material. she Has been taking pantoprazole with some relief. She is now referred for EGD . Review of Systems Review of Systems: All systems reviewed & are unremarkable except as noted in HPI and below PMFSH Past Medical History Medical History Body mass index (BMI) less than 20 Miscarriage Asthma Family History Family History Grandparent Diabetes mellitus Father Heart disease Mother No problems noted. Sibling No problems noted. Social History Social History Smoking status: Never smoker Second hand tobacco smoke exposure: Yes Alcohol intake: current Substance use: never Substance use type: does not use Do You Feel Safe in your Home?: Yes Lack of Transportation: No Lack of Food: Never True Current Housing: I Have Housing Concerned About Future Housing: No Difficulty Paying Gas/Electric Bills: No Difficulty Paying for Meds: No Currently Unemployed: No Education: Associate Degree Difficulty w/ Childcare or Family Care: No Living arrangements: with family Occupation/Education: occupation Additional occupation/education comments: school nurse [employer] Home Medications and Allergies Home Medications ?Medication ?Instructions ?Recorded ?Confirmed ?Type albuterol sulfate 90 mcg/actuation 1 puff inhalation Q 4H PRN 10/24/24 06/26/25 History aerosol inhaler shortness of breath or wheez ing ondansetron 4 mg disintegrating 4 mg PO Q6H PRN nausea and 02/10/25 06/26/25 Rx tablet vomiting #10 tabs pantoprazole 40 mg tablet,delayed 40 mg PO QAM #30 tab s 02/24/25 06/26/25 Rx release norethindrone 1 mg-ethinyl 1 tablet PO DAILY 06/07/25 06/26/25 History estradiol 20 mcg (24)-iron 75 mg (4) tablet (Edilma 24 Fe) Allergies Allergy/AdvReac Type Severity Reaction Status Date / Time latex Allergy Intermediate Rash Verified 06/26/25 07:09 Vital Signs Vital Signs - 24 hr 06/26/25 07:11 Temperature 98.4 F Pulse Rate 68 Respiratory Rate 15 Blood Pressure 113/77 Pulse Oximetry 100 Oxygen Delivery Room Air Exam Const: General: cooperative and healthy appearing Resp: Effort & Inspection: normal respiratory effort and able to speak in complete sentences Auscultation: clear to auscultation bilaterally Cardio: Rate: regular rate Rhythm: regular rhythm GI: Inspection: normal to inspection GI Palp: No No hepatosplenomegaly present Auscultation: normal bowel sounds Rectal Exam: deferred Skin: General skin exam: normal color Psych: Appearance: grossly normal Mental Status: mental status grossly normal Assessment and Plan Assessment and plan (1) Coffee ground emesis: Code(s): K92.0 - Hematemesis Status: Acute Assessment and Plan: The patient is deemed a good candidate for the procedure. Consent signed. Will proceed.
--- NOTE | 2025-06-26 08:58 | WPDANESPN ---
Anes - Prog Note Post-Op Date/Time: 06/26/25 08:58 Vital Signs: Last Vital Signs Temp 98.4 F 06/26/25 07:11 Pulse 68 06/26/25 07:11 Resp 15 06/26/25 07:11 BP 113/77 06/26/25 07:11 Pulse Ox 100 06/26/25 07:11 O2 Del Method Room Air 06/26/25 07:11 Pain Score (VAS): no Patient Feedback: Patient satisfied with anesthetic care.
[2025-06-26 09:01] VITALS: BP 104/66; PULSE 74; RESP 14; O2SAT 99
[2025-06-26 09:11] VITALS: BP 106/81; PULSE 63; RESP 14; O2SAT 99
[2025-06-26 09:21] VITALS: BP 102/88; PULSE 55; RESP 16; O2SAT 99
== END 2025-06-26 09:32 | disposition home or self-care (01) ==
PROVIDERS: PCP Nurse Practitioner Family; Visit Provider Internal Medicine Gastroenterology
PROC: 0DJ08ZZ Inspection of Upper Intestinal Tract, Via Natural or Artificial Opening Endoscopic (ICD-10-PCS; CPT 43239; principal; 2025-06-26 08:30)
DX: R11.2 Nausea with vomiting, unspecified (principal)
CPT/HCPCS: 43239

== ENCOUNTER 2025-06-26 09:50 | Outpatient (NON) | payer OTHER, SELFPAY ==
--- NOTE | 2025-06-26 | S_PTH ---
PATIENT: Perri Martinez LOC: [facility] U#:[id number] AGE/SX: 24/F ROOM: RE06/26/[address]: Ruben Hernandez MD : 2000 BED: DIS: 06/26/2025 SPEC #: [id number] RECD: 06/27/25 10:04 STATUS: OMAIRA REQ #: [id number] BRANDO: 06/26/25 00:[address]: Ruben Hernandez DEPT: [facility] Surgical RECD BY: Lucinda Howell ENTERED: 06/27/25 10:09 SP TYPE: Surgical OTHR DR: Vira Albert, STEPHANY Tissues: A - Gastric Biopsy B - Gastric Biopsy C - Gastric Biopsy Procedures: Hematoxylin and Eosin Stain Gross and Microscopic Level 4
--- OUTSIDE RECORDS SUMMARY | 2025-06-27 10:12 | XMS_ITS | Clinical Summary ---
Author Organization [facility] Address [address] [place] [address] Care Team Providers Care Deputy Chief Counsel Name Role Phone Annmarie Farley MD Primary Care Provider [phone] Annmarie Farley MD Unavailable [phone] Allergies Active Allergy Reactions Criticality Noted [...] Repeat labs also showed K+ 3.2. Vascular automotive accessory installer pulled pick back and she has had no further episodes. NSR on EKG and tele. -replete w/ PO Kcl -monitor bmp -monitor tele Vaginal spotting 03/28/2020 Assessment & Plan (03/29/2020 4:56 PM CDT): Now with abd cramping, concerning for threatened vs. septic as above. -check [facility] [place] Assessment & Plan (03/28/2020 12:46 PM CDT): [...] Appointment scheduled April 11 at 10am at [facility] 3rd floor [address] -OB counseled patient on returning to the ED including bleeding through 2 pads an hour for two consecutive hours, fevers/chills, or significant pain not relieved by OTC medications. -Discussed all information with her mother and father. Assessment & Plan (03/30/2020 12:07 PM CDT): in setting of pyelonephritis/bacteremia. Patient with bHCG drop from 11k -> 4k consistent with early loss. JUMPBASTING MACHINE OPERATOR discussed options including expectant, medical and surgical [...] Appointment scheduled April 11 at 10am at [facility] 3rd floor [address] -OB counseled patient on returning to the ED including bleeding through 2 pads an hour for two consecutive hours, fevers/chills, or significant pain not relieved by OTC medications. -CTM Assessment & Plan (03/29/2020 4:35 PM CDT): Patient complaining of intermittent low abd pain. JUMPBASTING MACHINE OPERATOR evaluated and feel most likely threatened vs less likely septic . -will repeat bHCG and if trending down OB will perform US tomorrow -Per JUMPBASTING MACHINE OPERATOR, ok to obtain abd CT if pain [...] A M CDT Height 160 cm (5' 3) 04/16/2020 9:50 AM CDT Body Mass Index 20.25 04/16/2020 9:50 AM CDT Plan of Treatment Health Maintenance Due Date Last Done Comments Cervical Cancer Screening 2002 Depression Screening 2002 Hepatitis C Screening 2002 HPV Vaccines (1 - 3-dose series) 2017 Meningococcal B Vaccine (1 of 2 - Standard) 2018 Regular Well Visit/Exam 18-64 2020 Influenza Vaccine (#1) 2025 11/15/2016, 2013 DTaP/Tdap/Td Vaccine (7 - Td or Tdap) 06/07/2029 06/07/2019, 03/07/2008, 06/22/2006, Additional history exists Pneumococcal vaccine <65 Aged Out 003, 01/24/2003, 2002 No longer eligible based on patient's age to complete this topic Hepatitis B Screening Completed 06/21/2003 , 2002, 2002 Varicella Vaccines Completed 05/28/2007, 06/22/2006 Insurance [employer] Address: [address] [place] [address] Advance Directives For more information, please contact: [phone] * Full Code (Latest Code Status on File) Date Activated Date Inactivated Comments 03/26/2020 7:22 AM 03/31/2020 7:20 PM Care Teams Deputy Chief Counsel Relationship Specialty Start Date End Date Annmarie Farley MD PCP - General 03/25/20 Annmarie Farley MD 03/25/20
== END 2025-06-26 09:51 | disposition home or self-care (01) ==
LOC: ANHLAB 06-27 09:51
PROVIDERS: PCP Nurse Practitioner Family; Visit Provider Internal Medicine Gastroenterology
DX: K92.0 Hematemesis (principal)
CPT/HCPCS: 88305